=== PATIENT | female | born 1950 | race Caucasian/White ===

== ENCOUNTER → 2023-12-22 15:36 | Outpatient (REF) | payer MEDICARE, OTHER, SELFPAY ==
[2023-12-22 17:56] LABS: ALT (SGPT) 47 U/L (0-35); AST (SGOT) 41 U/L (14-36); Albumin 3.9 g/dl (3.5-5.0); Alkaline Phosphatase 96 U/L (38-126); Total Bilirubin 0.3 mg/dl (0.2-1.3); Total Protein 6.1 g/dl (6.3-8.2)
== END ==
LOC: REG 15:36
PROVIDERS: ATTENDING PHYSICIAN Internal Medicine Rheumatology; FAMILY PHYSICIAN Internal Medicine
DX: K75.9 Inflammatory liver disease, unspecified (principal); Z79.899 Other long term (current) drug therapy
CPT/HCPCS: 36415; 80076

== ENCOUNTER 2025-04-04 11:52 | Emergency (ER) | payer MEDICARE, OTHER, SELFPAY ==
[2025-04-04] VITALS (9 sets, daily range): BP systolic 100–158; BP diastolic 60–95; PULSE 59; O2SAT 98; BMI 21.9
--- NOTE | 2025-04-04 13:33 | ED.GENMED ---
History of Present Illness
General
Chief Complaint: Fall
Source: patient and family (Daughter at bedside)
Exam Limitations: none
Time Seen by Provider: 04/04/25 12:30
Nursing documentation reviewed up to this point in time: agreed with
History of Present Illness
History of Present Illness:
Patient is a 74-year-old female w/ hx Parkinsons who presents to the emergency department for evaluation after experiencing a fall at home during the night while attempting to return to bed after using the bathroom. The fall occurred around
midnight, and she reports losing balance and hitting the left side of her head on a dresser, followed by twisting her neck. She denies any LOC however this fall was unwitnessed.
The patient confirmed that she was able to get up on her own shortly after the fall.
Patient has been able to bear weight since fall.
She currently is experiencing neck pain, mild headache, and pain in her left knee,. She denies any lightheadedness, dizziness, back pain or any bowel or bladder dysfunction. She denies any nausea, vomiting, visual changes. The patient notes prior
falls, including an incident a week and a half ago where she skinned her back and required evaluation and X-rays, which were negative.
Patient lives alone. She is not anticoagulated
Past History
Past History
ED Past Medical History: Arrthythmia, CAD, CHF, COPD, HTN and Other (OA, fibromyalgia)
ED Past Surgical History: Cardiac
Patient has exhibited threatening behavior?: No
PSI?: No
Social History
Tobacco: Former smoker
Alcohol: None
Drug: None
Review of Systems
Review of Systems
Allergies reviewed?: Yes
All Other Systems: ROS reviewed and negative except as documented in HPI and ROS
Phy Exam
Physical Exam
Physical Exam:
GENERAL: No acute distress
HEENT: Contusion to left frontal scalp, extraocular muscles intact, no signs of entrapment, dentition intact, no other obvious trauma
NECK: no midline tenderness, reproducible tenderness left lateral neck, normal range of motion, no other obvious trauma
BACK: Mild tenderness to the left posterior lower ribs, no other obvious trauma
CHEST: no tenderness, no flail segment, no subcutaneous emphysema, no other obvious trauma
LUNGS: clear to auscultation bilaterally
CARDIOVASCULAR: regular rate and rhythm
ABDOMEN: soft, non-tender, no masses, no other obvious trauma
PELVIS: stable, no obvious injury
EXTREMITIES: Contusion to left knee however no significant bony tenderness or joint laxity with decent range of motion, RLE and bilateral upper extremities atraumatic and nontender, moving all extremities, distal pulses intact,
NEUROLOGIC: awake, alert x 3, no focal deficits
Course
Orders/Labs/Results
Orders:
Orders
04/04/25 12:54
Cervical Spine wo Contrast CT [CT Cervical Spine W/o Iv Contr] Urgent
Comment:
Reason For Exam: unwitnessed fall
Knee, Left 4 or More Views [CR Knee - Left 4 Or More View*] Urgent
Comment:
Reason For Exam: fall
Ribs, Left 3 View W/PA Chest CR [CR Ribs-left 3 Vw W/pa Chest] Urgent
Comment:
Reason For Exam: fall
04/04/25 12:55
CT Head W/o Iv Contrast Urgent
Comment:
Reason For Exam: unwitnessed fall
04/04/25 12:56
Electrocardiogram (*1) Urgent
Reason for Study: Fatigue / Weakness
EKG- Treatment ONCE
04/04/25 13:22
Complete Blood Count/With Diff Urgent
Comprehensive Metabolic Panel Urgent
NT-proBNP Urgent
Total CK [Creatine Phosphokinase] Urgent
04/04/25 13:59
Case Management Consult ONCE
Case Management Consult: Discharge Planning
PT Consult [Pt Eval And Treat] Urgent
Activity Level: As Tolerated
04/04/25 16:45
Vikas Wrap Left-Treatment ONCE
Abnormal Lab Results
04/04/25
13:22
WBC 3.9 L 10^3/uL
(4.8-10.8)
RBC 4.00 L 10^6/uL
(4.20-5.40)
MCH 31.5 H pg
(27.0-31.0)
Plt Count 121 L 10^3/uL
(130-400)
Absolute Lymphs (auto) 0.7 L 10^3/uL
(1.2-3.4)
Lymphocytes % 19.2 L %
(20.5-51.1)
Chloride 109 H mmol/L
(98-107)
Carbon Dioxide 31 H mmol/L
(22-30)
BUN 22 H mg/dl
(7-17)
Total Protein 5.8 L g/dl
(6.3-8.2)
04/04/25 13:22
04/04/25 13:22
Vital Signs
Initial and Last Documented VS:
Initial Vital Signs
Temp Pulse Resp BP
98.2 F 72 16 141/72
04/04/25 11:57 04/04/25 11:57 04/04/25 11:57 04/04/25 11:57
Last Documented Vital Signs
Temp Pulse Resp BP Pulse Ox
98.2 F 61 15 128/65 100
04/04/25 11:57 04/04/25 17:15 04/04/25 17:15 04/04/25 15:33 04/04/25 15:15
MDM/Problems Addressed
Differential Diagnosis Includes:
Not limited to: Contusion, concussion, intra cerebral hemorrhage, cervical spine injury, rib fracture, hyponatremia/other electrolyte abnormalities, acute dehydration etc.
MDM/Problems Addressed:
74-year-old female with history as documented presenting following mechanical fall last night with associated head strike. No reported loss of consciousness. She does report left knee pain although has been able to bear weight. She reports mild
headache and neck pain although no change in vision, vomiting, or other neurologic symptoms. Vitals and physical exam as above. She is alert and oriented with no focal deficits. Contusions noted to left frontal scalp and left knee. No midline
spinal tenderness or finding suggestive of cauda equina. ED plan check labs, EKG, urinalysis. Will check CT imaging head and cervical spine as well as x-rays of her ribs and left knee. Will closely monitor and reassess.
Update: Labs reviewed. Mild leukopenia and thrombocytopenia. Chemistry reveals no acute abnormalities. CK normal. EKG reveals sinus bradycardia 59 bpm with left bundle branch block�relatively unchanged from prior. No acute traumatic injuries
noted on imaging. Considered knee immobilizer for left knee however feel place patient increased fall risk�will place Vikas wrap and advised ice, elevation.
Concern given patient history of frequent falls and unsteady gait secondary to Parkinson's however she does not wish to go to an acute rehab facility. Physical therapy down to evaluate patient who recommends at home PT/OT which was fortunately able
to be set up by case management for [facility]. patient ambulatory with walker. She has remained stable in the emergency department. Ultimately feel stable for discharge home with strict return precautions and primary care follow-up. Patient and
patient's daughter comfortable with plan. All questions answered.
Chronic conditions affecting care:
Parkinsons
Acute Exacerbation and/or Progression of Chronic Illness:
N/A
*Radiology
Radiology exam reviewed: preliminary read by ED provider (Left knee x-ray reviewed by tx-no acute fracture) and radiology read reviewed
*Pulse Oximetry
SaO2: 98
Patient hypoxic: no
*EKG
Interpreted by ED Provider?: Yes
EKG Intrepretation Date: 04/04/25
Interpretation: abnormal
Comparison EKG: changes noted
Heart Rate: 59
Rate: bradycardiac
Rhythm: sinus
[place]: left axis deviation
Interval: normal QT interval
QRS Pattern: left bundle branch block
Ischemia: no ischemia
*Management Scientist Interpretation
Rate: Management Scientist- N/A
*Critical Care Note
Total Time (30-74mins, 75-104mins- exclusive of procedures): Not Applicable
Patient Management
Escalation/DeEscalation of care consider admission/obs:
Admission not indicated
ED Attending Note
-
Portions of this chart may have been created with voice recognition software.� Occasional wrong word or��sound alike� substitutions may have occurred due to the inherent limitations of voice recognition software.
Discharge Plan
Departure
Patient Disposition: Home (Routine Discharge)
Date of Disposition: 04/04/25
Time of Disposition: 16:46
Patient with high blood pressure during this ER visit?: Yes
Discharge Problem:
Fall, Contusion of scalp, Injury of knee, left
Instructions: Preventing falls - ED discharge instructions, BLOOD PRESSURE
Prescriptions:
No Action
atorvastatin 80 MG tablet
80 mg PO QPM
folic acid 1 MG tablet
1 mg PO DAILY
montelukast 10 MG tablet
10 mg PO QPM
levalbuterol tartrate [Xopenex HFA] 45 mcg/actuation Hfa Aerosol Inhaler
2 inh INHALATION R Q6HPRN PRN (Reason: sob)
Patient Comments:
does not know dosage
esomeprazole magnesium [Nexium] 40 MG capsule,delayed release(DR/EC)
40 mg PO DAILY
nitroglycerin 1 BOTTLE spray,non-aerosol
1 spray sublingual [id number] PRN (Reason: chest pain)
vitamin B complex 1 TAB tablet
1 tab PO DAILY
fluticasone propionate 1 SPRAY spray,suspension
1 spray intranasal DAILY PRN (Reason: nasal congestion)
cholecalciferol (vitamin D3) 2,000 UNITS tablet
2,000 units PO DAILY
Xtampza ER 27 MG cap,sprinkl,ER12hr(DONT CRUSH)
27 mg PO Q12H
ezetimibe 10 MG tablet
10 mg PO QPM
duloxetine 60 MG capsule,delayed release(DR/EC)
120 mg PO HS
Trelegy Ellipta 1 EACH blister with device
1 ea IH R DAILY
Movantik 25 mg Tablet
25 mg PO DAILY
Rx Instructions:
must be taken on empty stomach; no food 1 hr after or 2-3 hrs before dose
cetirizine [Zyrtec] 10 mg Tablet
10 mg PO QPM
aspirin 325 mg Tablet
325 mg PO DAILY
famotidine 40 mg Tablet
20 mg PO QPM
therapeutic multivitamin Tablet
1 tab PO DAILY
ascorbic acid (vitamin C) [Vitamin C] 500 mg Tablet
500 mg PO DAILY
furosemide 40 mg Tablet
40 mg PO DAILY Qty: 30 0RF
potassium chloride [Klor-Con M20] 20 mEq Tablet,Er Particles/Crystals
20 meq PO DAILY Qty: 30 0RF
metoprolol succinate 25 mg Tablet Extended Release 24 Hr
25 mg PO DAILY Qty: 30 0RF
Slow Fe 142 mg (45 mg iron) Tablet Extended Release
142 mg PO QPM
Slow-Mag 71.5 mg Tablet,Delayed Release (Dr/Ec)
143 mg PO DAILY
oxycodone-acetaminophen 10-325 mg Tablet
1 tab PO Q4H PRN (Reason: pain)
melatonin 10 mg Tablet
10 mg PO HS PRN (Reason: insomina)
Referrals:
Katie De Leon DO [Family Provider, Internal Medicine] - Follow up in 1 week
Activity Restrictions/Additional Instructions:
RETURN TO THE EMERGENCY DEPARTMENT WITH ANY SEVERE HEADACHE, NECK PAIN, NUMBNESS/TINGLING IN EXTREMITIES, WEAKNESS, REPEAT FALLS, PERSISTENT DIZZINESS, FEVERS, OR ANY OTHER CONCERNS
- As discussed�your imaging of your head, cervical spine, ribs, and your left knee showed no acute traumatic injuries. You do have a contusion to your scalp. You should apply ice and take Tylenol as needed for pain.
- You were seen by physical therapy and case management in the emergency department who were able to set up at home PT.
- It is important stay well-hydrated. Please use your walker and move slowly throughout her house to prevent repeat falls
- Follow-up with your primary care physician for further evaluation/management to ensure that symptoms are improving monitor your symptoms closely and return to the emergency department with any acute worsening/new symptoms or any other concerns
Return to the emergency department with any acute worsening/new symptoms or any other concerns
Interventions
Interventions:
*Risk Screen - Suicide Last Done: 04/04/25 13:17
*General Assessment Last Done: 04/04/25 13:17
*Neglect/Abuse Screening Last Done: 04/04/25 13:17
*ED- Fall Risk Assessment Last Done: 04/04/25 11:57
*ED COVID-19 Vaccine History Last Done: 04/04/25 17:40
*Nursing Disposition Last Done: 04/04/25 17:40
ED-Musculoskeletal Assessment Last Done: 04/04/25 13:17
ED- Neurological Assessment Last Done: 04/04/25 13:17
ED-Skin Assessment Last Done: 04/04/25 13:17
Discharge Date and Time
Discharge Date/Time: 04/04/25 17:41
Print Language: BAHAMIAN
[2025-04-04 13:43] LABS: % Basophils 0.3 % (0-2); % Eosinophils 5.2 % (0-6); % Lymphocytes 19.2 % (20.5-51.1); % Monocytes 8.8 % (1.7-9.3); % Neutrophils 66.5 % (42.2-75.2); Absolute Eosinophils 0.2 10^3/uL (0-0.7); Absolute Lymphocytes 0.7 10^3/uL (1.2-3.4); Absolute Monocytes 0.3 10^3/uL (0.1-0.6); Absolute Neutrophils 2.6 10^3/uL (1.4-6.5); Hematocrit 37.8 % (37.0-47.0); Hemoglobin 12.6 g/dL (12.0-16.0); Mean Corp Hgb Conc. 33.3 g/dL (33.0-37.0); Mean Corpuscular Hgb 31.5 pg (27.0-31.0); Mean Corpuscular Volume 94.5 fL (81.0-99.0); Mean Platelet Volume 10.2 fL (7.4-10.4); Nucleated Red Blood Cells % 0 %; Platelet Count 121 10^3/uL (130-400); Red Cell Dist. Width 13.5 % (11.5-14.5); White Blood Cell Count 3.9 10^3/uL (4.8-10.8)
[2025-04-04 14:07] LABS: ALT (SGPT) < 10 U/L (0-35); AST (SGOT) 28 U/L (14-36); Albumin 3.8 g/dl (3.5-5.0); Alkaline Phosphatase 72 U/L (38-126); Blood Urea Nitrogen 22 mg/dl (7-17); Calcium 8.5 mg/dl (8.4-10.2); Carbon Dioxide 31 mmol/L (22-30); Chloride 109 mmol/L (98-107); Creatine Phosphokinase 58 U/L (30-135); Estimated Creatinine Clearance 50 ml/min; Glucose 95 mg/dl (70-99); Potassium 4.7 mmol/L (3.5-5.1); Sodium 141 mmol/L (135-145); Total Bilirubin 0.8 mg/dl (0.2-1.3); Total Protein 5.8 g/dl (6.3-8.2); eGFR > 60.00
[2025-04-04 14:16] LABS: NT-proBNP 338 pg/ml
--- NOTE | 2025-04-04 16:19 | CM ---
CM consult - CM reviewed chart and met with pt and daughter bedside in ED.
Pt lives alone in 1 story apartment in building with elevator.
Independent in ADLs, personal care and ambulation at baseline. Uses cane in apartment and rolling walker when outside.
Pt has a caregiver M-F 10-3 who provides transportation to appointments
Pt was going to outpatient PT at [facility] for balance and chronic pain therapy
Pt also has a nurse who visits monthly from Dr De Leon's office.
Hx of [facility]
Pt recommending Home PT/OT, pt and daughter agreeable and want to use [facility], referral sent
PCP: Katie De Leon
[facility]
== END 2025-04-04 17:41 | disposition home or self-care (01) ==
LOC: EMR 11:52
PROVIDERS: Physician Assistant; EMERGENCY PHYSICIAN Emergency Medicine; FAMILY PHYSICIAN Internal Medicine
DX: S09.90XA Unspecified injury of head, initial encounter (principal); S00.03XA Contusion of scalp, initial encounter; S80.02XA Contusion of left knee, initial encounter; W19.XXXA Unspecified fall, initial encounter; Y92.009 Unspecified place in unspecified non-institutional (private) residence as the place of occurrence of the external cause; I25.10 Atherosclerotic heart disease of native coronary artery without angina pectoris; I11.0 Hypertensive heart disease with heart failure; I50.9 Heart failure, unspecified; J44.9 Chronic obstructive pulmonary disease, unspecified; M19.90 Unspecified osteoarthritis, unspecified site; M79.7 Fibromyalgia; D69.6 Thrombocytopenia, unspecified; G20.A1 Parkinson's disease without dyskinesia, without mention of fluctuations; I44.7 Left bundle-branch block, unspecified; Z60.2 Problems related to living alone
CPT/HCPCS: 99284; 70450; 71101; 72125; 73564; 80053; 82550; 83880; 85025; 93005

== ENCOUNTER → 2025-08-22 11:58 | Outpatient (REF) | payer MEDICARE, OTHER, SELFPAY | LOC: RCS 11:58 | PROVIDERS: ATTENDING PHYSICIAN Internal Medicine Cardiovascular Disease; FAMILY PHYSICIAN Internal Medicine | DX: I50.32 Chronic diastolic (congestive) heart failure (principal) | CPT/HCPCS: 93306 ==